=== PATIENT | female | born 1995 | race African-American/Black ===

== ENCOUNTER 2020-06-04 08:44 | Emergency (ER) | payer MEDICAID ==
[~2020-06-04] VITALS: Ht 160 cm; Wt 60.0 kg
[2020-06-04] MEDS ORDERED: KEPP500 PO (08:59)
[2020-06-04] MEDS ORDERED: HYDROCODONE/ACETAMINOPHEN 5/325MG TABLET PO ONE (09:15)
[2020-06-04] MEDS ORDERED: CEPHALEXIN 250MG CAPSULE PO ONE (09:15)
[2020-06-04] MEDS ORDERED: TETANUS, DIPHTHERIA, PERTUSSIS VAC/PF 0.5ML (>7YR OLD) IM ONE (09:15)
[2020-06-04] MEDS ORDERED: BACITRACIN 15GM TUBE TOP ONE (09:30)
[2020-06-04] MEDS ORDERED: MORPHINE SULFATE 10 MG/ML CPJ IM ONE (10:45)
[2020-06-04] MEDS ORDERED: ONDANSETRON 4MG ODT PO ONE (10:45)
[2020-06-04 11:18] VITALS: BP 112/81
== END 2020-06-04 11:25 | disposition home or self-care (01) ==
LOC: ER 08:44
DX: S40.021A Contusion of right upper arm, initial encounter (principal); S50.811A Abrasion of right forearm, initial encounter; E07.9 Disorder of thyroid, unspecified; F41.9 Anxiety disorder, unspecified; K21.9 Gastro-esophageal reflux disease without esophagitis; G40.909 Epilepsy, unspecified, not intractable, without status epilepticus; Z98.890 Other specified postprocedural states; Z88.2 Allergy status to sulfonamides; Z91.030 Bee allergy status; Z91.011 Allergy to milk products; W10.8XXA Fall (on) (from) other stairs and steps, initial encounter; Y93.89 Activity, other specified; Y92.018 Other place in single-family (private) house as the place of occurrence of the external cause
CPT/HCPCS: 73000; 73030; 73060; 90471; 90715; 96372; 99284; J2270; Q0162

== ENCOUNTER 2020-06-06 05:53 | Emergency (ER) | payer MEDICAID ==
[~2020-06-06] VITALS: Ht 162.6 cm; Wt 61.0 kg
[~2020-06-06 05:53] MED LIST: KEPP500 PO
[2020-06-06 07:47] VITALS: BP 120/78
== END 2020-06-06 07:48 | disposition home or self-care (01) ==
LOC: ER 05:53
DX: Z48.00 Encounter for change or removal of nonsurgical wound dressing (principal)
CPT/HCPCS: 99281

== ENCOUNTER 2020-06-25 14:47 | Emergency (ER) | payer MEDICAID ==
[~2020-06-25] VITALS: Ht 162.6 cm; Wt 61.0 kg
[2020-06-25] MEDS ORDERED: ACETAMINOPHEN WITH CODEINE 300/30MG TABLET PO ONE (16:45)
[2020-06-25] MEDS ORDERED: DEXAMETHASONE 4MG TABLET PO ONE (17:15)
[2020-06-25] MEDS ORDERED: AMOXICILLIN/POTASSIUM CLAVULANATE 875/125MG TAB PO ONE (17:15)
[2020-06-25] MEDS ORDERED: NEOMYCIN-POLYMYXIN B-HYDROCORTISONE 1% OTIC SOLN 10ML LEFT EAR ONE (17:15)
[2020-06-25 17:31] VITALS: BP 111/61
== END 2020-06-25 17:32 | disposition home or self-care (01) ==
LOC: ER 15:13
DX: H60.92 Unspecified otitis externa, left ear (principal)
CPT/HCPCS: 99284; J8540